=== PATIENT | female | born 1950 | race Caucasian/White ===

== ENCOUNTER 2019-08-14 16:56 | Emergency (ER) | payer MEDICARE, BC ==
[~2019-08-14] VITALS: Ht 167.6 cm; Wt 65.3 kg
--- NOTE | 2019-08-14 17:05 | NUR ---
[id number], from home, c/o abd pain x 3-4 months, nausea. Patient a/ox4, breathing even andunlabored, no sob noted. Attached to the nuclear medicine specialist.
[2019-08-14] MEDS ORDERED: MORPHINE SULFATE INJ 4 MG/ML DISP.SYRIN ONE (17:20)
[2019-08-14] MEDS ORDERED: ONDANSETRON HCL/PF 4 MG/2 ML VIAL ONE (17:20)
[2019-08-14] MEDS ORDERED: ONDANSETRON HCL/PF 4 MG/2 ML VIAL IVP ONE (17:30)
[2019-08-14] MEDS ORDERED: IV NS 0.9% 1,000 ML BAG IV ONE (17:30)
[2019-08-14] MEDS ORDERED: MORPHINE SULFATE INJ 2 MG/ML DISP.SYRIN IV ONE ×2 (17:30→18:00)
[2019-08-14 17:32] LABS: APPEARANCE,URINE Slightly Cloudy (CLEAR); BILIRUBIN,URINE SMALL (NEGATIVE); BLOOD, URINE Moderate Ery/uL (NEGATIVE); COLOR,URINE Yellow (YELLOW); KETONES,URINE 80 (NEGATIVE); LEUKOCYTE ESTERASE ,URINE Negative (NEGATIVE); NITRITE, URINE Negative (NEGATIVE); PH,URINE 5.5 (5.0-8.0); PROTEIN,URINE 30 mg/dl (NEGATIVE); UGLUCOSE Negative (NEGATIVE); UROBILINOGEN,URINE 0.2 EU/dL (0.2)
[2019-08-14 17:35] LABS: BASOPHILS % (AUTO) 0.2 % (0.0-2.0); EOSINOPHILS % (AUTO) 0.1 % (0.0-6.0); HEMATOCRIT 36 % (33-45); HEMOGLOBIN 11.7 g/dL (11.5-14.8); LYMPHOCYTES # (AUTO) 0.3 /CMM (0.8-4.8); LYMPHOCYTES % (AUTO) 4.8 % (20.0-44.0); MEAN CORPUSCULAR HGB CONC 33 g/dl (31.0-36.0); MEAN CORPUSCULAR VOLUME 88 fL (82-100); MONOCYTES # (AUTO) 0.5 /CMM (0.1-1.30); MONOCYTES % (AUTO) 7.1 % (2.0-12.0); NEUTROPHILS % (AUTO) 87.8 % (43.0-81.0); PLATELET COUNT (AUTO) 334 /CMM (150-450); RED BLOOD CELL COUNT(AUTO) 4.06 MIL/uL (4.0-5.2); WHITE BLOOD COUNT (AUTO) 6.8 K/uL (4.3-11.0)
[2019-08-14 17:36] LABS: OCCULT BLOOD STOOL POSITIVE (NEGATIVE)
[2019-08-14] MEDS ORDERED: PANTOPRAZOLE 40 MG VIAL ONE (17:45)
[2019-08-14] MEDS ORDERED: PANTOPRAZOLE 40 MG VIAL IV ONE (18:00)
[2019-08-14] MEDS ORDERED: LORAZEPAM INJ 2 MG/ML VIAL ONE (18:07)
[2019-08-14 18:13] LABS: BACTERIA,URINE Moderate /HPF (None Seen); SQUAMOUS EPITHELIAL CELL,UR Few /HPF (None Seen); WBC,URINE 0-2 /HPF (0-3)
[2019-08-14 18:14] LABS: URIC ACID CRYSTALS,URINE Many /HPF (None Seen)
[2019-08-14 18:18] LABS: CALCIUM, SERUM 9.8 mg/dL (8.5-10.1); CREATININE 0.7 mg/dL (0.6-1.3)
[2019-08-14 18:23] LABS: ALBUMIN 4.1 g/dL (3.4-5.0); BILIRUBIN,DIRECT 0.1 mg/dL (0.0-0.2); BILIRUBIN,TOTAL 0.8 mg/dL (0.2-1.0); TOTAL PROTEIN, SERUM 7.1 g/dL (6.4-8.2)
[2019-08-14] MEDS ORDERED: LORAZEPAM INJ 2 MG/ML VIAL IV ONE (18:30)
[2019-08-14] MEDS ORDERED: CT SWABBABLE VALVE TRANS SET 1 EA INFUS.SET MC ONE (18:34)
[2019-08-14] MEDS ORDERED: IOHEXOL-300 100 ML VIAL IV ONE (18:34)
[2019-08-14] MEDS ORDERED: IV NS 0.9% 250 ML IV ONE (18:35)
[2019-08-14] MEDS ORDERED: hydrALAZINE HCL IV 20 MG VIAL IV ONE (19:00)
--- NOTE | 2019-08-14 19:00 | NUR ---
BP improved, per Tera hold BP medication at this time.
--- NOTE | 2019-08-14 19:15 | NUR ---
patient came back from ct.
--- NOTE | 2019-08-14 19:20 | NUR ---
endorsed to Alvina OWENS.
--- NOTE | 2019-08-14 19:40 | NUR ---
PT WAS CLEANED AND NEW DIAPER WAS APPLIED.
--- NOTE | 2019-08-14 20:23 | NUR ---
PT AMBULATED TO THE BATHROOM WITH A STEADY GAIT BEFORE D/C HOME. PT WAS TAKEN TO THE CAR VIA WC. PT'S IS DRIVING PT HOME.
--- NOTE | 2019-08-14 20:23 | NUR ---
IV removed. Catheter intact and site benign. Pressure and 4x4 applied to site. No bleeding noted. Patient discharged to home in stable condition. Written and verbal after care instructions given. Patient verbalizes understanding of instruction. VSS. NAD NOTED.
[2019-08-14 20:43] VITALS: BP 137/80
== END 2019-08-14 20:23 | disposition home or self-care (01) ==
LOC: ER 16:59
DX: K62.5 Hemorrhage of anus and rectum (principal); I10 Essential (primary) hypertension; F41.9 Anxiety disorder, unspecified; G20 Parkinson's disease
CPT/HCPCS: 36415; 74177; 80048; 80076; 81001; 82272; 83690; 85025; 85730; 87086; 96374; 96375; 99284; C9113; J2060; J2270; J2405; J7030; J7050; Q9967; 81000-TC

== ENCOUNTER 2023-10-14 13:27 | Emergency (ER) | payer BC, MEDICARE ==
[~2023-10-14] VITALS: Ht 167.6 cm; Wt 68.0 kg
[2023-10-14] MEDS: IV NS 0.9% 500 ML BAG IV ONE (14:06)
[2023-10-14 14:15] LABS: BASOPHILS % (AUTO) 0.2 % (0.0-2.0); EOSINOPHILS % (AUTO) 0.1 % (0.0-6.0); HEMATOCRIT 41 % (33-45); HEMOGLOBIN 13.4 g/dL (11.5-14.8); LYMPHOCYTES # (AUTO) 0.3 K/uL (0.8-4.8); LYMPHOCYTES % (AUTO) 3.3 % (20.0-44.0); MEAN CORPUSCULAR HEMOGLOBIN 29 PG (26.0-33.0); MEAN CORPUSCULAR HGB CONC 33 g/dl (31.0-36.0); MEAN CORPUSCULAR VOLUME 89 fL (82-100); MONOCYTES # (AUTO) 0.3 K/uL (0.1-1.30); MONOCYTES % (AUTO) 2.9 % (2.0-12.0); NEUTROPHILS % (AUTO) 93.5 % (43.0-81.0); PLATELET COUNT (AUTO) 311 K/uL (150-450); RED CELL DISTRIBUTION WIDTH 14.4 % (11.5-15.0); WHITE BLOOD COUNT (AUTO) 9.6 K/uL (4.3-11.0)
[2023-10-14] MEDS ORDERED: CITA10TA9 PO (14:17)
[2023-10-14] MEDS ORDERED: MIRALAX PO (14:17)
[2023-10-14] MEDS ORDERED: PIMA34CA PO (14:17)
[2023-10-14] MEDS ORDERED: MAGN100T3 PO (14:17)
[2023-10-14] MEDS ORDERED: APIX2.5T PO (14:17)
[2023-10-14] MEDS ORDERED: LEVO100T9 PO (14:17)
[2023-10-14] MEDS ORDERED: ENTA200T30 PO (14:17)
[2023-10-14] MEDS ORDERED: CLON0.5T4 PO (14:17)
[2023-10-14] MEDS ORDERED: PANT20TA2 PO (14:17)
[2023-10-14] MEDS ORDERED: CLOZ50TA PO (14:17)
[2023-10-14] MEDS ORDERED: CARB1TAB21 PO (14:17)
[2023-10-14] MEDS ORDERED: DIAZ5TAB PO (14:17)
[2023-10-14] MEDS ORDERED: DONE10TA44 PO (14:17)
[2023-10-14 14:24] LABS: CALCIUM, SERUM 9.5 mg/dL (8.5-10.1); CARBON DIOXIDE 26 mmol/L (21-32); CHLORIDE 103 mmol/L (98-107); CREATININE 0.8 mg/dL (0.6-1.3); GLUCOSE 146 mg/dL (74-106); POTASSIUM 4.1 mmol/L (3.5-5.1); SODIUM SERUM 138 mmol/L (136-145); UREA NITROGEN, BLOOD 18 mg/dL (7-18)
[2023-10-14 14:28] LABS: INR 1.02 (0.91-1.10); PARTIAL THROMBOPLASTIN TIME 30.3 SEC (24.3-34.3); PROTHROMBIN TIME 10.5 SECS (9.2-11.1)
[2023-10-14 14:29] LABS: ALANINE AMINOTRANSFERASE 8 U/L (12-78); ALBUMIN 3.7 g/dL (3.4-5.0); ALKALINE PHOSPHATASE 98 U/L (46-116); ASPARTATE AMINOTRANSFERASE 16 U/L (15-37); BILIRUBIN,DIRECT 0.1 mg/dL (0.0-0.2); BILIRUBIN,TOTAL 0.6 mg/dL (0.2-1.0); TOTAL PROTEIN, SERUM 7.3 g/dL (6.4-8.2)
[2023-10-14 14:33] LABS: LACTIC ACID 3.5 mmol/L (0.4-2.0)
[2023-10-14] MEDS ORDERED: ACETAMINOPHEN ES 500 MG TABLET ONE (16:41)
[2023-10-14] MEDS: ACETAMINOPHEN ES 500 MG TABLET PO ONE (16:43)
[2023-10-14 16:54] LABS: THYROID STIMULATING HORMONE 3.776 uIU/mL (0.358-3.74)
[2023-10-14 18:04] VITALS: BP 154/86; TEMP 98.2; O2SAT 96
== END 2023-10-14 18:13 | disposition home or self-care (01) ==
LOC: ER 13:27 → UNDOADMIN 16:49 → TELE1 16:49
DX: G20.A1 Parkinson's disease without dyskinesia, without mention of fluctuations (principal); E87.20 Acidosis, unspecified; R29.6 Repeated falls; I10 Essential (primary) hypertension; F41.9 Anxiety disorder, unspecified; Z79.899 Other long term (current) drug therapy
CPT/HCPCS: 99285; 71045; 93005; 72170; 73590; 85025; 80048; 87040 ×2; 83605 ×2; 80076; 36415; 84439; 84443; 84484; 85730; 82962; J7040